=== PATIENT | male | born 2005 | race Caucasian/White ===

== ENCOUNTER 2024-05-05 13:15 | Emergency (ER) | payer OTHER, SELFPAY ==
--- NOTE | ~2024-05-05 | CT_ITS ---
EXAMINATION: CT abdomen pelvis w con DATE: 05/05/2024 15:32 INDICATION: Nausea and vomiting. TECHNIQUE: Computed tomography (CT) of the abdomen and pelvis was performed with 100 mL Omnipaque 350 intravenous contrast. Automated exposure control and iterative reconstruction technique were employe d. The dose-length product was 189.07 mGy-cm. COMPARISON: None. FINDINGS: The visualized portions of the lungs are clear without pneumonia or pleural effusion. The h eart size is normal. No pericardial effusion. The liver, gallbladder, spleen, pancreas, adrenal gland s, and kidneys are normal. There are no dilated loops of bowel. The appendix is normal. There are no pathologically enlarged lymph nodes. There is no free intraperitoneal fluid. There is mild thoracic a nd lumbar spondylosis. IMPRESSION: 1. No etiology for the patient's symptoms. Reviewed, dictated and finalized at location A. STICS ANALYTICS MANAGER
[2024-05-05 13:43] VITALS: BP 115/71; PULSE 108; RESP 16; TEMP 36.4; O2SAT 99
[2024-05-05] MEDS: SODIUM CHLORIDE 0.9% IV 1,000 ML 999 ML IV CONT (14:19)
[2024-05-05] MEDS: LOPERAMIDE HCL 2 MG CAPSULE 4 MG PO (14:20)
[2024-05-05] MEDS: ONDANSETRON INJ 4 MG/2 ML VIAL IV PUSH (14:20)
[2024-05-05 14:28] LABS: Basophils Percent Auto 0.2 % (0.2-1.2); Eosinophils Percent Auto 0.1 % (0-4.4); Hematocrit 52.3 % (42.0-52.0); Hemoglobin 17.8 g/dL (14.0-18.0); Immature Granulocyte Absolute 0.05 K/mm3 (0.00-0.031); Immature Granulocyte Percent A 0.3 % (0-0.5); Lymphocytes Absolute Auto 0.56 K/mm3 (0.9-3.2); Lymphocytes Percent Auto 3.7 % (18.3-44.2); Mean Corpuscular Hemoglobin 31.8 pg (26-34); Mean Corpuscular Volume 93.6 fl (80-100); Mean Platelet Volume 9.1 fl (7.4-10.4); Monocytes Absolute Auto 0.9 K/mm3 (0.1-0.6); Monocytes Percent Auto 6.2 % (2.6-8.5); Neutrophils Absolute Auto 13.5 K/mm3 (1.3-6.7); Neutrophils Percent Auto 89.5 % (45.5-73.1); Platelet Count Result 238 k/mm3 (150-375); Red Blood Count 5.59 M/mm3 (4.6-6.20); White Blood Count 15.1 K/mm3 (4.5-10.0)
--- OUTSIDE RECORDS SUMMARY | 2024-05-05 14:40 | XMS_ITS | Clinical Summary ---
Author Organization [facility] ospital Address [address] [place] [address] Care Team Providers Care Cdl Dedicated Truck Driver Name Role Phone Carmen Faria MD Primary Care Provider + Allergies No known active allergies Medications melatonin tablet 1 tablet (3 mg total) 08/31/19 17 Active cholecalciferol (VITAMIN D-3) 2000 unit tablet Take 1 tablet (2,000 Units total) by mouth daily 30 tablet 11 02/02/20 20 Active Additional Information Patient not taking.Reported on 01/22/2024 clindamycin (Cleocin T) 1 % lotionIndicatio ns:Acne vulgaris Apply topically to face, upper back, chest daily in morning. 60 mL 11 09/08/19 21 Active Additional Information Patient not taking.Reported on 01/22/2024 tretinoin (RETIN-A) 0.05 % creamIndication s:Acne vulgaris Apply pea-sized amount all over face nightly for acne. AVOID direct sunlight when using this medication. 45 g 6 09/08/19 21 Active Additional Information Patient not taking.Reported on 01/22/2024 syringe, disposable, (BD Luer-Chantel Syringe) 1 mL syringeIndicati ons:Female-to-m liz transgender person Use as directed to inject testosterone once weekly. 16 each 1 06/28/19 22 Active needle, disp, 18 G (Hypodermic Coker) 18 gauge x 1 1/2 needleIndicatio ns:Mzwdcm-rx-hb le transgender person Use to draw up testosterone once weekly. Do not use for injecting 16 each 08/15/19 22 Active needle, disp, 25 gauge (BD Regular Bevel Coker) 25 gauge x 5/8 needleIndicatio ns:Pdpwzu-ol-xa le transgender person Use to inject testosterone once weekly 16 each 08/15/19 22 Active testosterone cypionate (DEPO-TESTOTERO NE) 200 mg/mL injectionIndica tions:Female-to -male transgender person INJECT 0.4ML SUBCUTANEOUSLY ONCE WEEKLY 4 mL 4 09/20/19 22 Active minoxidiL (LONITEN) 2.5 mg tablet 11/13/19 24 Active benzonatate (TESSALON) 100 mg capsuleIndicati ons:Cough Take 1 capsule (100 mg total) by mouth 3 (three) times a day as needed for cough 42 capsule 01/22/20 24 Active Active Problems Problem Noted Date Diagnosed Date 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 03/06 Tinnitus, right 03/06/2020 Mass of right ear 03/06/2020 Muzkzc-gn-cnml transgender person 10/14/2017 Vitamin D deficiency 06/24/2017 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/12/2017 Gender dysphoria in pediatric patient 04/23/2013 Immunizations Immunization Administration Dates Next Due DTaP 5 Pertussis 02/03/2008, 5,2003,05/12,2003 HPV, Quadrivalent 02/12/2017 HPV9 04/14/2018 Hep A, Unspecified 08/22/2015,04/13/2014 Hep B Vaccine 2003,2003,2003 Hib (PRP-OMP) 06/22/2004, 4,2003,03/14 IPV 02/03/2008,06/22/2004,2003 Influenza LAIV (Nasal) 12/16/2012 Influenza, Live, Intranasal, Quadrivalent 03/14/2015 Influenza, Quadrivalent, Emma l Culture-based MDCK, Preservative Free, Antibiotic Free, Intramuscular 12/26/2019,04/03/2019 Influenza, Quadrivalent, Spl it, Preservative Free, Intramuscular 12/27/2017,03/26/2016 Influenza, Trivalent, IM (MDV) 01/10/2021 Influenza, Trivalent, Preser vative Free, Intramuscular 02/10/2004 Influenza, Unspecified 12/16/2019 MMR 02/03/2008,01/09/2004 Meningococcal B, Recombinant (Trumenba) 10/16/2021 Meningococcal MCV4P (Menactra) 10/29/2019,2014 Pneumococcal Conjugate, Unspecified 10/2004,2003,2003,03/14 Tdap 10/16/2021,04/13/2014 Varicella 01/09/2004 Surgical History Surgery Date Site/Laterality Comments FOOT SURGERY Medical History Medical History Date Comments Joint pain Family History Medical History Relation Name Comments Depression Maternal Grandmother Depress ion; /Family history of depression - (Added by TW Conv) Depression Mother Depression; /Fa brody history of depression - (Added by TW Conv) Relation Name Status Comments Maternal Grandmother Alive Mother Alive Social History Tobacco Use Types Packs/Day Years Used Date Smoking Tobacco: Never Smokeless Tobacco: Never PHQ-2 Answer Date Recorded PHQ-2 TOTAL SCORE 0 08/14/2021 Comments Unknown Sex and Gender Information Value Date Recorded Sex Assigned at Female 03/15/2019 3:32 PM TRACK TEMPLATE MAKER Legal Sex Female 11:40 AM TRACK TEMPLATE MAKER Gender Identity Transgender Male 03/15/2019 3:32 PM TRACK TEMPLATE MAKER Sexual Orientation Not on file Obstetrics History Last Filed Vital Signs Vital Sign Reading Time Taken Comments Blood Pressure 92/68 01/22/2024 3:06 PM TRACK TEMPLATE MAKER Pulse 102 01/22/2024 3:06 PM TRACK TEMPLATE MAKER Temperature 36.4 C (97.5 F) 01/22/2024 3:06 PM TRACK TEMPLATE MAKER Respiratory Rate 20 01/22/2024 3:06 PM TRACK TEMPLATE MAKER Oxygen Saturation 98% 01/22/2024 3:06 PM TRACK TEMPLATE MAKER Inhaled Oxygen Concentration - - Weight 59.4 kg (131 lb) 01/22/2024 3:06 PM TRACK TEMPLATE MAKER Height 167.6 cm (5' 6 ) 01/22/2024 3:06 PM TRACK TEMPLATE MAKER Body Mass Index 21.14 01/22/2024 3:06 PM TRACK TEMPLATE MAKER Plan of Treatment Health Maintenance Due Date Last Done Comments Cervical Cancer Screening 2003 Hepatitis C Screening 2003 Varicella Vaccines (2 of 2 - 2-dose childhood series) 04/11/2015 01/09/2004 Meningococcal B Vaccine (2 o f 2 - Trumenba SCDM 2-dose series) 04/18/2022 10/16/2021 Depression Screening 08/14/2022 08/14/2021, 08/14/2021, 02/13/2021, Additional history exists Regular Well Visit/Exam 18-64 10/16/2022 10/16/2021 Covid-19 Vaccine (5 - 2023-2 5 season) 2023 12/27/2022, 03/07/2021, 07/11/2020, Additional history exists Influenza Vaccine (#1) 2023 , 01/10/2021, 12/26/2019, Additional history exists DTaP/Tdap/Td Vaccine (8 - Td or Tdap) 10/17/2031 10/16/2021, 04/13/2014, 02/03/2008, Additional history exists Hepatitis B Screening Completed 2003 , 2003, 2003 Pneumococcal vaccine <65 Completed 005, 2003, 2003, Additional history exists HPV Vaccines Completed 04/14/2018, 02/12/2017 Meningococcal Vaccine Completed 10/29/2019, 015 Insurance [facility] [facility] [employer] UHC CHOICE PLUS [facility] CHOICE PLUS CHOICE PLUS Care Teams Cdl Dedicated Truck Driver Relationship Specialty [place] [id number] [facility] [address] [place] [address] PCP - General 06/30/17
--- OUTSIDE RECORDS SUMMARY | 2024-05-05 14:40 | XMS_ITS | Referral Summary ---
Author Organization [facility] ospital Address [address] [place] [address] Care Team Providers Care Machine Presser Name Role Phone Carmen Faria MD Primary [...] 22 Active needle, disp, 18 G (Hypodermic Hudson) 18 gauge x 1 1/2 needleIndicatio ns:Ublwsi-by-dp le transgender person Use to draw up testosterone once weekly. Do not use for injecting 16 each 08/15/19 22 Active needle, disp, 25 gauge (BD Regular Bevel Hudson) 25 gauge x 5/8 needleIndicatio ns:Bejeny-bb-qy le transgender person Use to inject testosterone [...] right 03/06/2020 Mass of right ear 03/06/2020 Qdbsjv-mf-cnky transgender person 10/14/2017 Vitamin D deficiency 06/24/2017 [...] Conjugate, Unspecified 10/2004,2003,2003,03/14 Tdap 10/16/2021,04/13/2014 Varicella 01/09/2004 Social History Tobacco Use Types Packs/Day Years Used Date Smoking Tobacco: Never Smokeless Tobacco: Never PHQ-2 Answer Date Recorded PHQ-2 TOTAL SCORE 0 08/14/2021 Comments Unknown Sex and Gender Information Value Date Recorded Sex Assigned at Female 03/15/2019 3:32 PM TRANSFER MACHINE OPERATOR Legal Sex Female 11:40 AM TRANSFER MACHINE OPERATOR Gender Identity Transgender Male 03/15/2019 3:32 PM TRANSFER MACHINE OPERATOR Sexual Orientation Not on file Last Filed Vital Signs Vital Sign Reading Time Taken Comments Blood Pressure 92/68 01/22/2024 3:06 PM TRANSFER MACHINE OPERATOR Pulse 102 01/22/2024 3:06 PM TRANSFER MACHINE OPERATOR Temperature 36.4 C (97.5 F) 01/22/2024 3:06 PM TRANSFER MACHINE OPERATOR Respiratory Rate 20 01/22/2024 3:06 PM TRANSFER MACHINE OPERATOR Oxygen Saturation 98% 01/22/2024 3:06 PM TRANSFER MACHINE OPERATOR Inhaled Oxygen Concentration - - Weight 59.4 kg (131 lb) 01/22/2024 3:06 PM TRANSFER MACHINE OPERATOR Height 167.6 cm (5' 6 ) 01/22/2024 3:06 PM TRANSFER MACHINE OPERATOR Body Mass Index 21.14 01/22/2024 3:06 PM TRANSFER MACHINE OPERATOR Plan of Treatment Not on file Insurance [facility] [employer] Member Subscriber Plan / Payer (Ef fective 2021-Present) Name:Steven Jaime Relation to Subscriber:Child Name:MAUREEN MUJICA Date of :1964 (Home) Address: [address] [place] [id number] Payer ID:[id number] (NAIC) Type:[facility]/PPO Address: [place] [phone] [employer] CHOICE PLUS [facility] CHOICE PLUS [facility] CHO[employer] PLUS Care Teams Machine Presser Relationship Specialty [place] [address] [facility] [address] [place] [address] PCP - General 06/30/17
[2024-05-05 14:47] LABS: Alanine Aminotransferase 26 U/L (6-50); Albumin Level 5.1 g/dL (3.5-5.1); Alkaline Phosphatase 65 U/L (38-126); Anion Gap 14 mmol/L (4-12); Aspartate Amino Transferase 26 U/L (17-59); Blood Urea Nitrogen 19 mg/dL (9-20); Carbon Dioxide 26 mmol/L (22-30); Chloride 101 mmol/L (98-107); Estimated CRCL calculation 95 ml/min; Estimated Glomerular Filt Rate > 60; Glucose 89 mg/dL (65-110); Potassium 4.4 mmol/L (3.4-5.0); Sodium 141 mmol/L (137-145)
--- NOTE | 2024-05-05 14:50 | ED_ITS ---
HPI - General Adult General Chief complaint: Nausea/Vomiting/Diarrhea Stated complaint: n/v/d Time Seen by Provider: 05/05/24 13:55 History of Present Illness HPI narrative: Patient is a 19-year-old transgender male who presents ER with nausea and vomiting. Began last night. Having waves of emesis with abdominal cramping. Also has diarrhea. No urinary frequency urgency or dysuria. No fevers or chills or sweats. No known sick contacts. No alleviating factors at home. Related Data Allergies Allergy/AdvReac Type Severity Reaction Status Date / Time No Known Allergies Allergy Verified 05/05/24 14:19 Review of Systems 2 Review of Systems: All systems reviewed & are unremarkable except as noted in HPI and below Constitutional: Constitutional: Reports no additional constitutional complaints Cardiovascular: Cardiovascular: Reports no additional cardiovascular complaints Respiratory: Respiratory: Reports no additional respiratory complaints Gastrointestinal: Gastrointestinal: Reports no additional gastrointestinal complaints Genitourinary: Genitourinary: Reports no additional male genitourinary complaints PMFSH Surgical History Surgical History (Updated 05/05/24 @ 14:53 by Landry Reynolds MD) H/O plastic surgery Chest Reconstruction Exam 2 Narrative: GENERAL: Well-appearing, well-nourished, and in no acute distress. HEAD: Normocephalic, atraumatic. ENT: Mucous membranes moist. CHEST: Clear to auscultation. No respiratory distress. HEART: Tachycardic regular. Normal peripheral pulses. ABDOMEN: Soft, mild diffuse discomfort, no guarding, nondistended. EXTREMITIES: Normal range of motion. No edema. SKIN: Warm, dry, no rash. NEURO: Alert and oriented x3. PSYCH: Normal mood and affect. Course Course Emergency Course: Feels improved with Zofran and fluids. Mild leukocytosis. CMP unremarkable. Negative viral swab. CT without acute process. Vital Signs Vital signs: Vital Signs Temperature 97.6 F 05/05/24 13:43 Pulse Rate 108 H 05/05/24 13:43 Respiratory Rate 16 05/05/24 13:43 Blood Pressure 115/71 05/05/24 13:43 Pulse Oximetry 99 05/05/24 13:43 Oxygen Delivery Room Air 05/05/24 13:43 Temperature 98.1 F 05/05/24 15:30 Pulse Rate 94 05/05/24 15:30 Respiratory Rate 15 05/05/24 15:30 Blood Pressure 116/67 05/05/24 15:30 Pulse Oximetry 100 05/05/24 15:30 Oxygen Delivery Room Air 05/05/24 13:43 Medical Decision Making Vital Signs Vital Signs: Vital Signs Temperature 97.6 F 05/05/24 13:43 Pulse Rate 108 H 05/05/24 13:43 Respiratory Rate 16 05/05/24 13:43 Blood Pressure 115/71 05/05/24 13:43 Pulse Oximetry 99 05/05/24 13:43 Oxygen Delivery Room Air 05/05/24 13:43 Temperature 98.1 F 05/05/24 15:30 Pulse Rate 94 05/05/24 15:30 Respiratory Rate 15 05/05/24 15:30 Blood Pressure 116/67 05/05/24 15:30 Pulse Oximetry 100 05/05/24 15:30 Oxygen Delivery Room Air 05/05/24 13:43 Lab Data 05/05/24 14:17 05/05/24 14:17 Labs: Lab Results 05/05/24 Range/Units 14:17 WBC 15.1 H (4.5-10.0) K/mm3 RBC 5.59 (4.6-6.20) M/mm3 Hgb 17.8 (14.0-18.0) g/dL Hct 52.3 H (42.0-52.0) % MCV 93.6 (80-100) fl MCH 31.8 (26-34) pg MCHC 34.0 (32-36) g/dl RDW 12.0 (11.5-14.5) % Plt Count 238 (150-375) k/mm3 MPV 9.1 (7.4-10.4) fl Immature Gran % (Auto) 0.3 (0-0.5) % Neut % (Auto) 89.5 H (45.5-73.1) % Lymph % (Auto) 3.7 L (18.3-44.2) % Creek % (Auto) 6.2 (2.6-8.5) % Eos % (Auto) 0.1 (0-4.4) % Baso % (Auto) 0.2 (0.2-1.2) % Lymph # (Auto) 0.56 L (0.9-3.2) K/mm3 Creek # (Auto) 0.9 H (0.1-0.6) K/mm3 Eos # (Auto) 0.0 (0-0.3) K/mm3 Baso # (Auto) 0.0 (0.0-0.1) K/mm3 Abs Immat Gran (auto) 0.05 H (0.00-0.031) K/mm3 Absolute Neuts (auto) 13.5 H (1.3-6.7) K/mm3 Absolute Nucleated RBC 0.000 (0.0-0.012) K/mm3 Nucleated RBC % 0.0 (0.0-0.2) % Sodium 141 (137-145) mmol/L Potassium 4.4 (3.4-5.0) mmol/L Chloride 101 (98-107) mmol/L Carbon Dioxide 26 (22-30) mmol/L Anion Gap 14 H (4-12) mmol/L BUN 19 (9-20) mg/dL Creatinine 0.88 (0.7-1.3) mg/dL Estim Creat Clear Calc 95 ml/min Estimated GFR > 60 (59 - ) Glucose 89 (65-110) mg/dL Calcium 10.0 (8.4-10.2) mg/dL Total Bilirubin 1.0 (0.2-1.3) mg/dL AST 26 (17-59) U/L ALT 26 (6-50) U/L Alkaline Phosphatase 65 (38-126) U/L Total Protein 9.0 H (6.3-8.2) g/dL Albumin 5.1 (3.5-5.1) g/dL Lipase 78 (23-300) U/L Influenza A (RT-PCR) Negative (Negative) Influenza B (RT-PCR) Negative (Negative) RSV (RT-PCR) Negative (Negative) SARS-CoV-2 RNA (RT-PCR) Negative (Negative) Imaging Data Radiologist's impression: ITS Impressions Abdomen/Pelvis CT 05/05/24 15:38 IMPRESSION: 1. No etiology for the patient's symptoms. Discharge Plan Discharge Clinical Impression: Gastroenteritis Patient Disposition: Home, Self-Care Condition: Stable Instructions: Gastroenteritis (ED) Additional Instructions: Please drink plenty of fluids at home. Return to the emergency department if you develop high fevers, have persistent severe abdominal pain, or have bloody stools or vomit, as these could be signs of a more serious medical emergency. Return to the emergency department if you are unable to keep down liquids because of severe nausea/vomiting. Patient Language: Belarusian Prescriptions: New simethicone 125 mg capsule 125 mg PO QID Qty: 20 0RF Rx Instructions: administer after meals and at bedtime ondansetron 4 mg tablet,disintegrating 4 mg PO Q6H PRN (Reason: nausea and vomiting) Qty: 10 0RF doxycycline hyclate 100 mg tablet 100 mg PO BID Qty: 20 0RF Follow-up/Referrals: PHYSICIAN NOT ON STAFF,NONSTAFF [Primary Care Provider] - 1 Week
[2024-05-05 15:05] LABS: Influenza A QL RT-PCR Negative (Negative); Influenza B QL RT-PCR Negative (Negative); RSV RNA, RT-PCR Negative (Negative); SARS-CoV-2 RNA PCR Negative (Negative)
[2024-05-05 15:30] VITALS: BP 116/67; PULSE 94; RESP 15; TEMP 36.7; O2SAT 100
[2024-05-05 15:40] LABS: Lipase 78 U/L (23-300)
== END 2024-05-05 16:27 | disposition home or self-care (01) ==
PROVIDERS: Emergency Provider Emergency Medicine
DX: K52.9 Noninfective gastroenteritis and colitis, unspecified (principal); Z20.822 Contact with and (suspected) exposure to COVID-19; F64.0 Transsexualism
CPT/HCPCS: 36415; 74177; 80053; 83690; 85025; 87637; 96361; 96374; 99284; A9270; J2405; J7030; Q9967